=== PATIENT | female | born 1975 | race Caucasian/White ===

== ENCOUNTER 2017-10-18 19:09 | Inpatient (IN) | payer MEDICAID ==
--- NOTE | 2017-10-10 22:00 | NUR ---
PT AMBULATES TO THE RESTROOM VOIDING WELL ON TELEMETRY SR NOT DISTRESS NOTED AT THIS TIME Addendum: 10/20/17 at 0439 by Imani De Leon RN WRONG DATE DOCUMENTATION
[~2017-10-18] VITALS: Ht 165.1 cm; Wt 63.0 kg
[2017-10-18 19:33] VITALS: BP 121/58
--- NOTE | 2017-10-18 21:04 | NUR ---
Patient ambulated to OF4 to be evaluated as fast track by Dr. Mistry. RN evaluating patient.
--- NOTE | 2017-10-18 21:05 | NUR ---
42/F CAME IN WITH C/O NODULE/GROWTH BELOW RT EAR BY MANDIBLE. PT STATES SHE NOTICED IT IN AND WAS SEEN BY PCP, STARTED ON ANTBIOTIC, PT FINSIHED FULL COURSE, PT STATES NODULE DID NOT RESOLVE. C/O 07/09 PAIN TO SITE RADIATING TO RT FACE, REPORTS INTERMITTENT EAR PAIN,DENIES DISCHARGE. SITE NOTED WITH NONMOVEABLE NODULE, NO REDNESS, SKIN INTACT. DENIES OTHER PMH/RX/OTC
--- NOTE | 2017-10-18 23:00 | NUR ---
Patient appears to be resting comfortably in bed. Vital Signs within normal limits. Respirations even and unlabored. Addendum: 10/19/17 at 0245 by DEYSI RESTING COMFORTABLY IN CHAIR
[2017-10-19 00:08] LABS: HEMATOCRIT 43.4 % (36-48); MEAN CORPUSCULAR HEMOGLOBIN 28 pg (27-31); MEAN CORPUSCULAR HGB CONC 32 g/dL (33-37); MEAN CORPUSCULAR VOLUME 86 fL (80-94); PLATELET COUNT (AUTO) 289 K/uL (140-450); RED BLOOD CELL COUNT(AUTO) 5.04 MIL/uL (4.20-5.40); RED CELL DISTRIBUTION WIDTH 13.4 % (11.6-13.7); WHITE BLOOD COUNT (AUTO) 8.6 K/uL (4.8-10.8)
[2017-10-19 00:32] LABS: ALBUMIN 4.1 g/dL (3.4-5.0); ANION GAP 15.1 (8-16); CREATININE 0.8 mg/dL (0.6-1.3); POTASSIUM 4.1 mmol/L (3.5-5.1); TOTAL BILIRUBIN 0.4 mg/dL (0.0-1.0)
[2017-10-19 00:46] LABS: EOSINOPHILS % (MANUAL) 1 % (0-4); LYMPHOCYTES % (MANUAL) 32 % (20-46); MONOCYTES % (MANUAL) 2 % (5-12)
[2017-10-19] MEDS ORDERED: MORPHINE SULFATE 4 MG/ML SYR IVP ONE (01:35)
[2017-10-19] MEDS ORDERED: ONDANSETRON 4 MG/2 ML VIAL IVP ONE (01:35)
[2017-10-19] MEDS ORDERED: NACL 0.9% 1,000 ML IV ONE (01:35)
[2017-10-19] MEDS ORDERED: CLINDAMYCIN 600 MG/4 ML VIAL IM ONE (01:35)
--- NOTE | 2017-10-19 01:40 | NUR ---
PT AMBULATED TO BED 3
[2017-10-19] MEDS ORDERED: NAFCILLIN 2,000 MG VIAL IV ONE (02:20)
[2017-10-19] MEDS ORDERED: WATER STERILE 10 ML MC ONE (02:28)
[2017-10-19] MEDS ORDERED: ORE25 PO (02:41)
--- NOTE | 2017-10-19 02:45 | NUR ---
Patient appears to be resting comfortably in bed. Vital Signs within normal limits. Respirations even and unlabored.
[2017-10-19] MEDS ORDERED: KETOROLAC 30 MG/ML VIAL IVP PRN (03:00)
[2017-10-19] MEDS ORDERED: ACETAMINOPHEN 325 MG TAB PO PRN (03:00)
[2017-10-19] MEDS ORDERED: ONDANSETRON 4 MG/2 ML VIAL IVP PRN (03:00)
--- NOTE | 2017-10-19 03:35 | NUR ---
Patient will be admitted to care of ALEXANDER. Admited to TELE. Will go to room 119B. Belongings list completed. BESIDE REPORT TO KINZA MIRAMONTES. IV SL AND PATENT
[2017-10-19 03:44] VITALS: BP 116/71
--- NOTE | 2017-10-19 03:44 | NUR ---
ADMITTED A 42 F FROM ER. CAME BY MIRIAN . AMBULATORY. ON TELE MONITOR.-SR. AWAKE ALERT AND ORIENTED X4. CAME DUE TO RT FACIAL PAIN SEC TO DX; PAROTITIS. RT SIDE BELOW THE RT EAR HAS HARD AREA LIKE A SMALL STONE. NO REDNESS NOTED. SHE SAID IT HAS BEEN PAINFUL X3 DAYS . PLAN OF CARE DISCUSSED AND VERBALIZED UNDERSTANDING. ORIENTED TO HOSPITAL ROUTINES. BED ON LOW POSITION. CALL LIGHT PLACED WITHIN EASY REACH. INSTRUCTED TO CALL IF NEED ANY ASSISTANCE. WILL CONTINUE TO MONITOR.
[2017-10-19] MEDS: NAFCILLIN 2,000 MG in DEXTROSE 5% 100 ML IV SCH ×2 (04:00→08:27)
--- NOTE | 2017-10-19 04:00 | NUR ---
MRSA NARES SPECIMEN COLLECTED AND SEND TO LAB.
[2017-10-19] MEDS: NACL 0.9% 1,000 ML IV SCH ×2 (04:27→13:00)
[2017-10-19 04:39] LABS: FREE T4 (FREE THYROXINE) 0.92 ng/dL (0.76-1.46); MAGNESIUM 1.9 mg/dL (1.8-2.4); PHOSPHORUS 3.4 mg/dL (2.5-4.9); THYROID STIMULATING HORMONE 2.31 uIU/mL (0.34-3.74)
[2017-10-19 05:59] LABS: APPEARANCE,URINE CLEAR (CLEAR); BILIRUBIN,URINE NEGATIVE (NEGATIVE); BLOOD, URINE NEGATIVE (NEGATIVE); COLOR,URINE YELLOW (YELLOW); LEUKOCYTE ESTERASE ,URINE TRACE (NEGATIVE); NITRITE, URINE NEGATIVE (NEGATIVE); UGLUCOSE NEGATIVE (NEGATIVE)
[2017-10-19] MEDS ORDERED: DEXTROSE 5% IV SCH (06:00)
[2017-10-19] MEDS ORDERED: NAFCILLIN IV SCH ×3 (06:00→16:00)
[2017-10-19 06:15] LABS: BARBITURATE, URINE NEG. ng/ml (NEG <=200); BENZODIAZEPINE, URINE NEG. ng/mL (NEG <=200); CANNABINOID, URINE NEG. ng/mL (NEG <=50); COCAINE, URINE NEG. ng/mL (NEG <=300); OPIATE, URINE NEG. ng/mL (NEG <=2000); PHENCYCLIDINE SCREEN,URINE NEG. ng/mL (NEG <=25)
[2017-10-19 06:51] LABS: RBC,URINE 0-5 (RARE) /HPF (0-5); WBC,URINE 0-5 (RARE) /HPF (0-5)
[2017-10-19 06:52] LABS: CALCIUM OXALATE CRYSTALS,UR 0-10 /HPF (None Seen)
[2017-10-19] MEDS ORDERED: CLINDAMYCIN 600 MG/4 ML VIAL ONE (06:53)
[2017-10-19] MEDS: CLINDAMYCIN 600 MG in DEXTROSE 5% 50 ML IV SCH ×3 (07:01→19:14)
[2017-10-19] MEDS: HYDROcodone/APAP 7.5/325 MG 1 TAB PO PRN ×2 (07:06→11:33)
--- NOTE | 2017-10-19 07:20 | NUR ---
ENDORSED PT IN STABLE CONDITION TO AM NURSE.
--- NOTE | 2017-10-19 07:25 | NUR ---
RECEIVED PATIENT REPORT AT BEDSIDE. PATIENT IS AAOX4 AND SHOWS NO S/S OF ACUTE DISTRESS ON ROOM AIR. PATIENT STATES TOLERABLE PAIN AT THE RIGHT SIDE OF NECK OF 3/10. SKIN IS INTACT. IV NOTED ON THE L AC WITH IVF'S INFUSING WELL. ON TELE MONITORING. PATIENT WAS EXPLAINED HOSPITAL ENVIORNMENT, USING CALL LIGHT FOR ASSISTANCE, AND POC FOR TODAY AND VERBALIZED UNDERSTANDING. THE BED IS IN LOW POSITION WITH CALL LIGHT WITHIN REACH.
[2017-10-19 08:00] VITALS: BP 111/96
[2017-10-19] MEDS: HYDROCHLOROTHIAZIDE 25 MG TAB PO SCH (08:26)
[2017-10-19] MEDS: DOCUSATE SODIUM 100 MG GELCAP PO SCH ×2 (08:26→21:00)
[2017-10-19] MEDS: LACTOBACILLUS RHAMNOSUS GG 1 EACH CAP PO SCH (08:26)
--- NOTE | 2017-10-19 08:32 | NUR ---
ADMINISTERED SCHEDULED MEDICATIONS. IV ABX INFUSING WELL. ALL NEEDS MET AT THIS TIME. WILL CONTINUE TO MONITOR.
--- NOTE | 2017-10-19 09:23 | NUR ---
PATIENT HAS BEEN SCREENED AND CATEGORIZED LOW NUTRITION RISK. PATIENT WILL BE SEEN WITHIN 7 DAYS OF ADMISSION. 10/25/[address]
--- NOTE | 2017-10-19 10:15 | NUR ---
PATIENT HAS FAMILY AT BEDSIDE. PATIENT'S NEEDS MET AT THIS TIME. WILL CONTINUE TO MONITOR.
[2017-10-19 12:00] VITALS: BP 97/66
[2017-10-19] MEDS ORDERED: NACL 0.9% IV SCH ×2 (12:08→16:00)
--- NOTE | 2017-10-19 13:20 | NUR ---
PATIENT C/O NAUSEA AND DIZZINESS. GAVE ZOFRAN 4 MG IVP. WILL CONTINUE TO MONITOR.
--- NOTE | 2017-10-19 13:30 | NUR ---
PATIENT WAS FOUND CRYING RUBBING ON HER LEFT THIGH. WHEN ASKED IF SHE IS IN PAIN SHE SAYS, "SI". WHEN ASKED TO RATE HER PAIN FROM 1-10, PATIENT ONLY CRIES. FLACC IS 6. WILL ADMINISTER PRN PAIN MEDICATION FOR MODERATE PAIN. Addendum: 10/19/17 at 1344 by Katty Christian RN WRONG PATIENT
[2017-10-19 13:31] VITALS: BP 109/58
--- NOTE | 2017-10-19 14:25 | NUR ---
PATIENT IS SLEEPING AND SHOWS NO S/S OF ACUTE DISTRESS AT THIS TIME.
[2017-10-19] MEDS: KETOROLAC 15 MG/ML VIAL IVP SCH ×2 (15:05→19:15)
[2017-10-19] MEDS ORDERED: KETOROLAC 15 MG/ML VIAL IVP SCH (15:27)
--- NOTE | 2017-10-19 15:30 | NUR ---
ADMINISTERED SCHEDULE MEDICATIONS. PATIENT TOLERATED WELL. PATIENT STATED 2/10 PAIN AT LOWER RT SIDE OF NECK. WILL CONTINUE TO MONITOR.
[2017-10-19 16:00] VITALS: BP 94/62
--- NOTE | 2017-10-19 17:27 | NUR ---
PATIENT C/O NAUSEA AND DIZZINESS AGAIN. PATIENT IS NOT DUE FOR ZOFRAN 4MG IVP YET. PATIENT IS AWARE. NOTIFIED DR SUAREZ. WILL AWAIT ORDERS.
--- NOTE | 2017-10-19 19:20 | NUR ---
GAVE PATIENT REPORT AT BEDSIDE TO NIGHT NURSE. PATIENT ENDORSED IN STABLE CONDITION
--- NOTE | 2017-10-19 19:25 | NUR ---
RECEIVED PT FROM RON MIRAMONTES PT IS AAOX4 BOLIVIAN SPEAKER, AMBULATORY ON TELEMETRY SR NOT DISTRESS NOTED INITIAL ASSESSMENT DONE
[2017-10-19 20:00] VITALS: BP 107/73
--- NOTE | 2017-10-19 22:00 | NUR ---
PT AMBULATES TO THE RESTROOM VOIDING WELL IV ON RT AC INFUSING WELL DENIES ANY PAIN AT THIS TIME ON TELEMETRY SR
[2017-10-19] MEDS ORDERED: MECLIZINE 25 MG TAB PO PRN (23:25)
[2017-10-20] VITALS: BP 110/68
[2017-10-20] MEDS: KETOROLAC 15 MG/ML VIAL IVP SCH ×3 (00:36→11:26)
[2017-10-20] MEDS: CLINDAMYCIN 600 MG in DEXTROSE 5% 50 ML IV SCH ×3 (00:37→12:31)
[2017-10-20] MEDS: NACL 0.9% 1,000 ML IV SCH ×2 (00:37→09:00)
--- NOTE | 2017-10-20 02:00 | NUR ---
PT HAS BEEN MONITORING CLOSE SLEEPING WELL ON TELEMETRY ST
[2017-10-20 04:00] VITALS: BP 91/57
--- NOTE | 2017-10-20 04:41 | NUR ---
SPONGE BATH GIVEN LINEN CHANGED COOPERATIVE SR ON TELEMETRY NOT FEVER
[2017-10-20 06:38] LABS: BASOPHILS # (AUTO) 0.3 K/uL (0.00-0.22); BASOPHILS % (AUTO) 4.1 % (0.0-2.0); EOSINOPHILS # (AUTO) 0.1 K/uL (0-0.4); EOSINOPHILS % (AUTO) 2.1 % (0.0-4.0); HEMATOCRIT 37.7 % (36-48); HEMOGLOBIN 12.4 g/dL (12.0-16.0); LYMPHOCYTES # (AUTO) 2.5 K/uL (2.5-16.5); LYMPHOCYTES % (AUTO) 40.6 % (20.5-51.1); MEAN CORPUSCULAR HEMOGLOBIN 28 pg (27-31); MEAN CORPUSCULAR HGB CONC 33 g/dL (33-37); MEAN CORPUSCULAR VOLUME 86 fL (80-94); MONOCYTES # (AUTO) 0.5 K/uL (0.8-1.0); MONOCYTES % (AUTO) 7.8 % (1.7-9.3); NEUTROPHILS # (AUTO) 2.7 K/uL (1.8-7.7); NEUTROPHILS % (AUTO) 45.4 % (42.2-75.2); PLATELET COUNT (AUTO) 256 K/uL (140-450); RED BLOOD CELL COUNT(AUTO) 4.38 MIL/uL (4.20-5.40); RED CELL DISTRIBUTION WIDTH 13.3 % (11.6-13.7); WHITE BLOOD COUNT (AUTO) 6.1 K/uL (4.8-10.8)
--- NOTE | 2017-10-20 06:38 | NUR ---
PT RESTING ON BED DENIES ANY PAIN OR DISCOMFORT IV ON RT AC INFUSING WELL ON TELEMETRY SR
[2017-10-20 07:09] LABS: CHOL/HDL RATIO 4.2 (1-4.5); MAGNESIUM 1.8 mg/dL (1.8-2.4)
[2017-10-20 07:13] LABS: CARBON DIOXIDE 25.7 mmol/L (21-32); CREATININE 0.7 mg/dL (0.6-1.3); POTASSIUM 3.7 mmol/L (3.5-5.1)
--- NOTE | 2017-10-20 07:15 | NUR ---
RECEIVED REPORT FROM CUSTOMER ADVISOR NURSE. PATIENT LYING IN BED SLEEPING, AROUSABLE BY VOICE. IN STABLE CONDITION. NO DISTRESS NOTED. DENIES ANY PAIN AT THIS TIME. RESPIRATIONS EVEN, UNLABORED, ON ROOM AIR. AAOX4, CALM, COOPERATIVE, SKIN COLOR APPROPRIATE TO ETHNICITY, WARM TO TOUCH. IV SITE INTACT, PATENT, AND INFUSING IVF PER ORDERS. LUNGS CTA ON ALL LOBES. ABDOMEN SOFT, NON-DISTENDED. SKIN INTACT, NO WOUNDS/LESIONS NOTED THROUGHOUT BODY. PATIENT ABLE TO AMBULATE TO BATHROOM AND BACK TO BED WITH STEADY GAIT. REVIEWED PLAN OF CARE WITH PATIENT. PATIENT VERBALIZED UNDERSTANDING. SAFETY MEASURES IN PLACE, CALL LIGHT WITHIN REACH. WILL CONTINUE TO MONITOR.
[2017-10-20 07:19] LABS: PROTHROMBIN TIME 11.1 secs (10.8-13.4)
[2017-10-20 08:00] VITALS: BP 110/67
[2017-10-20] MEDS: DOCUSATE SODIUM 100 MG GELCAP PO SCH (09:52)
[2017-10-20] MEDS: HYDROCHLOROTHIAZIDE 25 MG TAB PO SCH (09:52)
[2017-10-20] MEDS: LACTOBACILLUS RHAMNOSUS GG 1 EACH CAP PO SCH (09:52)
--- NOTE | 2017-10-20 09:55 | NUR ---
PATIENT SITTING IN BED TALKING ON THE PHONE WITH FAMILY MEMBER. NO DISTRESS NOTED. DENIES ANY PAIN. CONDITION UNCHANGED. PATIENT ABLE TO TOLERATE BREAKFAST WITHOUT ANY NAUSEA/VOMITING. SCHEDULED MEDICATIONS DUE GIVEN. SAFETY MEASURES IN PLACE, CALL LIGHT WITHIN REACH. WILL CONTINUE TO MONITOR.
[2017-10-20] MEDS ORDERED: CLIN300C2 PO (10:09)
[2017-10-20] MEDS ORDERED: ASCO1CAP75 PO (10:09)
[2017-10-20] MEDS ORDERED: ACET-9529 PO (10:12)
[2017-10-20] MEDS ORDERED: LEVO750T2 PO (10:45)
[2017-10-20] MEDS ORDERED: LEVOFLOXACIN 750 MG/D5W PREMIX 150 ML IV SCH (11:00)
--- NOTE | 2017-10-20 11:33 | NUR ---
PATIENT LYING IN BED WATCHING TV. NO DISTRESS NOTED. DENIES ANY PAIN. CONDITION UNCHANGED. SCHEDULED MEDICATIONS DUE GIVEN. SAFETY MEASURES IN PLACE, CALL LIGHT WITHIN REACH. WILL CONTINUE TO MONITOR.
--- NOTE | 2017-10-20 13:00 | NUR ---
PATIENT LYING IN BED TALKING ON THE PHONE WITH FAMILY MEMBER. NO DISTRESS NOTED. DENIES ANY PAIN. CONDITION UNCHANGED. SCHEDULED MEDICATIONS DUE GIVEN. SAFETY MEASURES IN PLACE, CALL LIGHT WITHIN REACH. WILL CONTINUE TO MONITOR.
--- NOTE | 2017-10-20 15:00 | NUR ---
PATIENT SITTING IN BED ON THE PHONE. NO DISTRESS NOTED. DENIES ANY PAIN. CONDITION UNCHANGED. WILL CONTINUE TO MONITOR.
[2017-10-20] MEDS ORDERED: INFLUENZA VIRUS VACCINE QUAD 0.5 ML SYR IMVAC SCH (15:20)
--- NOTE | 2017-10-20 15:45 | NUR ---
PATIENT SITTING IN BED WATCHING TV. NO DISTRESS NOTED. DENIES ANY PAIN. PATIENT TO BE DISCHARGED HOME VIA PRIVATE VEHICLE LATER TODAY. PATIENT ALREADY AWARE BY MD. PROVIDED DISCHARGE INSTRUCTIONS/EDUCATION IN PATIENT'S PREFERRED LANGUAGE OF [place], FOLLOW-UP VISIT WITH MD, NEW/CHANGED MEDICATION REGIMEN, AND DISEASE PROCESS MANAGEMENT/PREVENTION OF PAROTITIS. ANSWERED ALL OF PATIENT'S QUESTIONS REGARDING DISCHARGE. PATIENT VERBALIZED COMPLETE UNDERSTANDING. IV SITE REMOVED WITH MINIMAL BLOOD AND LUMEN COMPLETELY INTACT. ID BANDS REMOVED. ALL BELONGINGS WITH PATIENT IN A BAG. PATIENT AWAITING FOR FAMILY MEMBER TO COME AROUND 1600 TO TAKE PATIENT HOME VIA PRIVATE VEHICLE. WILL CONTINUE TO MONITOR.
[2017-10-20 16:00] VITALS: BP 118/69
--- NOTE | 2017-10-20 17:00 | NUR ---
PATIENT'S HERE ON UNIT TO TAKE PATIENT HOME VIA PRIVATE VEHICLE. ALL BELONGINGS WITH PATIENT. ESCORTED PATIENT DOWN TO THE LOBBY VIA AMBULATION WITH STEADY GAIT. PATIENT DISCHARGED AT THIS TIME TO HOME VIA PRIVATE VEHICLE IN STABLE CONDITION.
== END 2017-10-20 17:00 | disposition home or self-care (01) | DRG 115 ==
LOC: MED 19:09 → MTU 10-19 02:32
PROVIDERS: ADMIT Family Medicine; ATTEND Family Medicine
DX: K11.21 Acute sialoadenitis (principal); I10 Essential (primary) hypertension; K11.5 Sialolithiasis; N39.0 Urinary tract infection, site not specified; E78.5 Hyperlipidemia, unspecified
CPT/HCPCS: 36415; 70490; 71010; 76536; 80048; 80053; 80305; 81001; 81025; 83036; 83735; 83880; 84100; 84439; 84443; 84484; 85025; 85610; 85730; 87040; 87081; 90658; 93005; 96361; 96365; 96372; 96375; 99285; J1885; J1956; J2270; J2405; J3490; J7030; J7060; Q0092